=== PATIENT | female | born 1990 | race Caucasian/White ===

== ENCOUNTER 2020-10-09 05:34 | Day surgery (SDC) | payer OTHER ==
[2020-10-05 13:08] VITALS: BMI 28.3
[2020-10-09] MEDS ORDERED: PROPOFOL 20 ML ONE ×2 (11:39→11:53)
[2020-10-09] MEDS ORDERED: MIDAZOLAM HCL 2 MG/2 ML SINGLE DOSE VIAL ONE ×2 (11:40)
[2020-10-09] MEDS ORDERED: ONDANSETRON 4 MG/2 ML VIAL IVPUSH PRN (14:07)
[2020-10-09] MEDS ORDERED: oxyCODONE HCL 5 MG TABLET PO PRN (14:07)
[2020-10-09] MEDS ORDERED: LACTATED RINGERS SOLUTION 1,000 ML IV SCH (14:15)
[2020-10-09 18:13] VITALS: BP 120/77; PULSE 90; TEMP 98
== END 2020-10-09 15:15 | disposition home or self-care (01) ==
LOC: JASU-SURG 05:34
PROVIDERS: ATTEND Obstetrics & Gynecology
PROC: 0UJD8ZZ Inspection of Uterus and Cervix, Via Natural or Artificial Opening Endoscopic (ICD-10-PCS; 2020-10-09)
PROC: 0UB97ZX Excision of Uterus, Via Natural or Artificial Opening, Diagnostic (ICD-10-PCS; principal; 2020-10-09 10:00)
PROC: 0UDB7ZX Extraction of Endometrium, Via Natural or Artificial Opening, Diagnostic (ICD-10-PCS; 2020-10-09 10:00)
DX: N84.0 Polyp of corpus uteri (principal)
CPT/HCPCS: 81025; 88305-TC; 94760

== ENCOUNTER 2023-01-26 19:00 | Inpatient (IN) | payer BC, OTHER ==
[2023-01-26] MEDS: ELECTROLYTE-148 SOLN 1,000 ML IV SCH (19:45)
[2023-01-26] MEDS ORDERED: DINOPROSTONE 10 MG VAGINAL SUPPOSITORY VG ONE (20:00)
[2023-01-26 20:01] LABS: BASO % 0.3 % (0-2.0); EOS % 1.3 % (0-4.5); HEMOGLOBIN 13.7 GM/dL (10.7-15.3); LYMPH % 24.3 % (8-40); MCH 28.4 pg (25.7-33.7); MCHC 33.3 g/dl (32.0-36.0); MEAN CELL VOLUME 85.4 fl (80-96); MEAN PLT VOLUME 8.9 fl (7.5-11.1); MONO % 8.5 % (3.8-10.2); NEUT % 65.6 % (42.8-82.8); PLATELET COUNT 192 10^3/uL (134-434); RBC 4.81 M/mm3 (3.60-5.2); RDW 15.4 % (11.6-15.6); WHITE BLOOD COUNT 10.1 K/mm3 (4.0-10.0)
[2023-01-26 20:12] VITALS: BMI 36.5
[2023-01-26 20:12] LABS: INR 0.9 (0.83-1.09); PROTHROMBIN TIME (PATIENT) 10.5 SEC (9.7-13.0)
[2023-01-26 20:13] LABS: ACTIVATED PTT 29.7 SECONDS (25.2-36.5)
[2023-01-26 20:45] LABS: POTASSIUM 3.9 mmol/L (3.5-5.1)
[2023-01-26 20:46] LABS: CALCIUM 9.2 mg/dL (8.5-10.1)
[2023-01-26 20:47] LABS: BLOOD UREA NITROGEN 12.4 mg/dL (7-18)
[2023-01-26 20:50] LABS: CREATININE 0.7 mg/dL (0.55-1.3)
[2023-01-27] MEDS: ELECTROLYTE-148 SOLN 1,000 ML IV SCH ×2 (03:50→12:00)
[2023-01-27] MEDS ORDERED: PROMETHAZINE HCL 25 MG/1 ML VIAL IVPB ONE (10:13)
[2023-01-27] MEDS ORDERED: BUTORPHANOL TARTRATE 1 MG/ML VIAL IVPB ONE (10:13)
[2023-01-27] MEDS ORDERED: OXYTOCIN 30 UNITS in 0.9% NS 30 UNIT/500 ML INFUS.BAG IVPB SCH (10:15)
[2023-01-27] MEDS ORDERED: BUTORPHANOL TARTRATE 1 MG/ML VIAL ONE (10:28)
[2023-01-27] MEDS ORDERED: PROMETHAZINE HCL 25 MG/1 ML VIAL ONE (10:29)
[2023-01-27] MEDS ORDERED: FENTANYL/BUPIVACAINE/NS/PF - PCEA - 50 ML DISP.SYRIN EP ONE ×2 (12:18→17:29)
[2023-01-27] MEDS ORDERED: NALOXONE HCL 0.4 MG/ML VIAL IVPUSH PRN (12:21)
[2023-01-27] MEDS: FENTANYL/BUPIVACAINE/NS/PF - PCEA - 50 ML DISP.SYRIN EP SCH ×2 (12:45→17:30)
[2023-01-27] MEDS ORDERED: OXYTOCIN 30 UNITS in 0.9% NS 30 UNIT/500 ML INFUS.BAG IVPB ONE (12:57)
[2023-01-27] MEDS ORDERED: DEXTROSE 5%-LACTATED RINGERS 500 ML IV ONE (17:12)
[2023-01-27] MEDS ORDERED: DEXTROSE 5%-LACTATED RINGERS 300 ML IV ONE (17:28)
[2023-01-27] MEDS ORDERED: CITRIC ACID/SODIUM CITRATE 30 ML UNIT-DOSE CUP PO ONE (18:49)
[2023-01-27] MEDS ORDERED: LIDO 2%/EPI 1:200000 PRESRVFRE (20 ML SDVIAL) ONE (19:38)
[2023-01-27] MEDS ORDERED: ceFAZolin SODIUM 1 GM VIAL ONE (19:43)
[2023-01-27] MEDS ORDERED: SODIUM CHLORIDE 0.9% P/F 10 ML VIAL IJ ONE (19:43)
[2023-01-27] MEDS ORDERED: morphine SULFATE/PF 1 MG/2 ML (2cc Syringe - QUVA) ONE (20:02)
[2023-01-27] MEDS ORDERED: PHENYLEPHRINE HCL 10 MG/1 ML SINGLE DOSE VIAL ONE (20:09)
[2023-01-27] MEDS ORDERED: OXYTOCIN 10 UNITS/ML VIAL ONE ×2 (20:20→21:03)
[2023-01-27 21:08] LABS: CORD BASE EXCESS -2.6 mmol/L (0-2); CORD HCO3 25.3 mmHg (20-29); CORD PCO2 55.9 mmHg (30-78); CORD pH 7.273 (7.14-7.44)
[2023-01-27 21:09] LABS: CORD HCO3 25.2 mmHg (20-29); CORD pH 7.234 (7.14-7.44)
[2023-01-27] MEDS ORDERED: BENZOCAINE 28 GM HEMORRHOIDAL OINTMENT TP PRN (21:22)
[2023-01-27] MEDS ORDERED: IBUPROFEN 800 MG/8 ML IJ IVPB PRN (21:22)
[2023-01-27] MEDS ORDERED: BENZOCAINE 20% 57 GM BOTTLE TP PRN (21:22)
[2023-01-27] MEDS ORDERED: METHYLERGONOVINE MALEATE 0.2 MG/1 ML AMP IM PRN (21:22)
[2023-01-27] MEDS ORDERED: WITCH HAZEL 50% (TUCKS) 40 PAD/JAR PAD TP PRN (21:22)
[2023-01-27] MEDS ORDERED: ACETAMINOPHEN 325 MG TABLET (FP) PO PRN ×2 (21:22→21:34)
[2023-01-27] MEDS ORDERED: SENNOSIDES/DOCUSATE COMBO (SENNA PLUS) TABLET (UD) PO PRN (21:22)
[2023-01-27] MEDS ORDERED: ONDANSETRON 4 MG/2 ML VIAL IVPUSH PRN (21:34)
[2023-01-27] MEDS ORDERED: morphine SULFATE/PF 1 MG/2 ML (2cc Syringe - QUVA) EP ONE (21:34)
[2023-01-27] MEDS ORDERED: IBUPROFEN 600 MG TABLET (FP) PO PRN (21:34)
[2023-01-28] MEDS: OXYTOCIN 20 UNITS in 0.9% NS 20 UNIT/1,000 ML INFUS.BAG IV SCH ×2 (01:17→21:56)
[2023-01-28] MEDS: CEFAZOLIN 1 GM in DEXTROSE 5%-WATER - 50 ML IVPB SCH ×3 (02:11→17:35)
[2023-01-28] MEDS: SIMETHICONE 80 MG TAB.CHEW (FP) PO PRN ×3 (09:11→23:57)
[2023-01-28] MEDS: PRENATAL VITAMINS W/ FOLIC ACID TABLET (FP) PO SCH (09:11)
[2023-01-28] MEDS: IBUPROFEN 600 MG TABLET (FP) PO PRN ×3 (09:12→23:59)
[2023-01-28] MEDS ORDERED: oxyCODONE HCL 5 MG TABLET PO PRN ×2 (09:22)
[2023-01-28 09:25] LABS: BASO % 0.3 % (0-2.0); EOS % 0.4 % (0-4.5); HEMATOCRIT 39.3 % (32.4-45.2); HEMOGLOBIN 12.7 GM/dL (10.7-15.3); LYMPH % 17.3 % (8-40); MCH 28.5 pg (25.7-33.7); MCHC 32.4 g/dl (32.0-36.0); MEAN PLT VOLUME 9.8 fl (7.5-11.1); MONO % 7.1 % (3.8-10.2); NEUT % 74.9 % (42.8-82.8); PLATELET COUNT 163 10^3/uL (134-434); RBC 4.47 M/mm3 (3.60-5.2); RDW 15.4 % (11.6-15.6); WHITE BLOOD COUNT 10.2 K/mm3 (4.0-10.0)
[2023-01-28] MEDS: ELECTROLYTE-148 SOLN 1,000 ML IV SCH (15:59)
[2023-01-28 18:35] VITALS: RESP 18
[2023-01-28] MEDS ORDERED: BISACODYL 10 MG SUPP.RECT RC PRN (21:22)
[2023-01-28] MEDS: FENTANYL/BUPIVACAINE/NS/PF - PCEA - 50 ML DISP.SYRIN EP SCH (21:57)
[2023-01-29] MEDS: IBUPROFEN 600 MG TABLET (FP) PO PRN ×3 (06:23→16:41)
[2023-01-29] MEDS: SIMETHICONE 80 MG TAB.CHEW (FP) PO PRN ×3 (06:23→16:41)
[2023-01-29] MEDS: PRENATAL VITAMINS W/ FOLIC ACID TABLET (FP) PO SCH (09:39)
[2023-01-30] MEDS: IBUPROFEN 600 MG TABLET (FP) PO PRN (05:00)
[2023-01-30] MEDS: SIMETHICONE 80 MG TAB.CHEW (FP) PO PRN (05:00)
[2023-01-30 08:37] LABS: BASO % 0.4 % (0-2.0); HEMOGLOBIN 12.3 GM/dL (10.7-15.3); LYMPH % 17.4 % (8-40); MCH 28.9 pg (25.7-33.7); MCHC 33.3 g/dl (32.0-36.0); MEAN CELL VOLUME 86.7 fl (80-96); MEAN PLT VOLUME 8.3 fl (7.5-11.1); MONO % 5.4 % (3.8-10.2); NEUT % 74.8 % (42.8-82.8); PLATELET COUNT 195 10^3/uL (134-434); RBC 4.27 M/mm3 (3.60-5.2); RDW 15.3 % (11.6-15.6); WHITE BLOOD COUNT 11.9 K/mm3 (4.0-10.0)
[2023-01-30 10:23] VITALS: BP 127/83; PULSE 73; TEMP 98.4
[2023-01-30] MEDS: PRENATAL VITAMINS W/ FOLIC ACID TABLET (FP) PO SCH (10:40)
== END 2023-01-30 12:25 | disposition home or self-care (01) | DRG 788 ==
LOC: JLDR 19:00 → J3W 01-27 23:35
PROVIDERS: ADMIT Obstetrics & Gynecology; ATTEND Obstetrics & Gynecology
PROC: 10D00Z1 Extraction of Products of Conception, Low, Open Approach (ICD-10-PCS; principal; 2023-01-27)
DX: O24.429 Gestational diabetes mellitus in childbirth, unspecified control (principal); O61.8 Other failed induction of labor; Z3A.39 39 weeks gestation of pregnancy; Z37.0 Single live birth
CPT/HCPCS: 36415; 36600; 80048; 82803; 82962; 85025; 85610; 85730; 86780; 86850; 86900; 86901; 94010